=== PATIENT | female | born 1980 | race Two or more races ===

== ENCOUNTER 2017-01-02 22:04 | Emergency (ER) | payer MEDICAID ==
[~2017-01-02] VITALS: Ht 172.7 cm; Wt 61.2 kg
--- NOTE | 2017-01-02 22:20 | NUR ---
CALLED FOR PT, NO REPSONE.
--- NOTE | 2017-01-02 22:43 | NUR ---
CALLED FOR PT IN [place] AGAIN. WAS INFORMED BY FAMILY MEMBER THE PT "WILL BE RIGHT BACK."
[2017-01-02] MEDS ORDERED: CIPROFLOXACIN HCL 250 MG TABLET PO STA (23:03)
[2017-01-02] MEDS ORDERED: CIPROFLOXACIN IV RTU 200 ML IV ONE ×2 (23:18→23:20)
[2017-01-02] MEDS ORDERED: DEXAMETHASONE SOD PHOSPHATE 10 MG/ML VIAL ONE (23:19)
[2017-01-02] MEDS ORDERED: KETOROLAC TROMETHAMINE INJ 30 MG/ML VIAL ONE (23:19)
[2017-01-02] MEDS ORDERED: DEXAMETHASONE SOD PHOSPHATE 10 MG in IV D5W 50 ML IV ONE (23:30)
--- NOTE | 2017-01-02 23:30 | NUR ---
RECEIVED REPORT AND CARE OF PT AT THIS TIME. C/O "I CANT HEAR FROM BOTH EARS ESPECIALLY THE LT EAR. I HAVE THE EARDROPS BUT CANT GET ANY RELIEF". DENIES HEADACHE/DIZZINESS/N/V OR ANY OTHER SX'S AT THIS TIME. NON DIAPHORETIC. RESP EVEN AND UNLABORED. PLACED ON MONITOR AND CARE PLAN DISCUSSED.
[2017-01-02 23:37] LABS: BASOPHILS # (AUTO) 0.1 /CMM (0.0-0.2); BASOPHILS % (AUTO) 0.6 % (0.0-2.0); EOSINOPHILS # (AUTO) 0.4 /CMM (0.0-0.7); EOSINOPHILS % (AUTO) 3.2 % (0.0-6.0); HEMATOCRIT 40 % (33-45); HEMOGLOBIN 13.5 g/dL (11.5-14.8); LYMPHOCYTES # (AUTO) 2.4 /CMM (0.8-4.8); LYMPHOCYTES % (AUTO) 19.5 % (20.0-44.0); MEAN CORPUSCULAR HEMOGLOBIN 30 PG (26.0-33.0); MEAN CORPUSCULAR HGB CONC 33 g/dl (31.0-36.0); MEAN CORPUSCULAR VOLUME 88 fL (82-100); MONOCYTES # (AUTO) 0.8 /CMM (0.1-1.30); MONOCYTES % (AUTO) 6.5 % (2.0-12.0); NEUTROPHILS # (AUTO) 8.7 /CMM (1.8-8.9); NEUTROPHILS % (AUTO) 70.2 % (43.0-81.0); PLATELET COUNT (AUTO) 218 /CMM (150-450); RED BLOOD CELL COUNT(AUTO) 4.57 MIL/uL (4.0-5.2); WHITE BLOOD COUNT (AUTO) 12.4 K/uL (4.3-11.0)
[2017-01-02] MEDS: DEXAMETHASONE SOD PHOSPHATE 10 MG/ML VIAL IV STA (23:40)
[2017-01-02] MEDS: CIPROFLOXACIN IV RTU 400 MG in PREMIX 1 EA IV STA (23:42)
[2017-01-02 23:48] LABS: CALCIUM, SERUM 8.7 mg/dL (8.5-10.1); CREATININE 0.8 mg/dL (0.6-1.3); POTASSIUM 3.8 mmol/L (3.5-5.1)
[2017-01-02 23:54] LABS: ALBUMIN 4.1 g/dL (3.4-5.0); BILIRUBIN,TOTAL 0.6 mg/dL (0.2-1.0); TOTAL PROTEIN, SERUM 7.8 g/dL (6.4-8.2)
[2017-01-02] MEDS: KETOROLAC TROMETHAMINE INJ 30 MG/ML VIAL IV STA (23:55)
[2017-01-02] MEDS ORDERED: CT SWABBABLE VALVE TRANS SET 1 EA INFUS.SET MC ONE (23:56)
[2017-01-02] MEDS ORDERED: IV NS 0.9% 250 ML IV ONE (23:56)
[2017-01-02] MEDS ORDERED: IOHEXOL-300 100 ML VIAL IV ONE (23:56)
--- NOTE | 2017-01-03 00:36 | NUR ---
STATES "I FEEL WAY BETTER". NAD NOTED. RESP EVEN AND UNLABORED. AWAITS RESULTS.
--- NOTE | 2017-01-03 01:13 | NUR ---
Patient discharged to home in stable condition. Written and verbal after care instructions given. Patient verbalizes understanding of instruction. IV removed. Catheter intact and site benign. Pressure and 4x4 applied to site. No bleeding noted. Ambulatory with a steady gait
[2017-01-03 01:18] VITALS: BP 103/70
== END 2017-01-03 01:19 | disposition home or self-care (01) ==
LOC: ER 22:04
DX: H60.93 Unspecified otitis externa, bilateral (principal); R51 Headache
CPT/HCPCS: 36415; 70460-TC; 80053-TC; 84703-TC; 85025-TC; A4216; A4606; J0744; J1100; J1885; J7050; J7060; Q9967; Z7610